=== PATIENT | male | born 1965 | race Caucasian/White ===

== ENCOUNTER 2016-07-31 10:35 | Emergency (ER) | payer OTHER ==
[2016-07-31 10:43] VITALS: TEMP 98.4; BMI 26.1
[2016-07-31 10:58] LABS: AUTOMATED BASOPHIL 0.6 % (0-2); AUTOMATED EOSINOPHIL 1.3 % (0-5); AUTOMATED LYMPH 24.7 % (17-44); AUTOMATED MONOCYTE 8.9 % (3-10); AUTOMATED NEUTROPHIL 64.5 % (45-76); MPV 7.7 fL (7.4-10.4)
[2016-07-31 11:12] LABS: BLOOD UREA NITROGEN 14 MG/DL (9-20); CALCIUM 10.3 MG/DL (8.4-10.2); CALCULATED OSMOLALITY 265 MOs/Kg (270-290); CHLORIDE 100 mEq/L (98-107); GLUCOSE 92 MG/DL (70-99); SODIUM LEVEL 137 mEq/L (137-146); TOTAL PROTEIN 8.2 G/DL (6.3-8.2)
[2016-07-31 11:13] LABS: PARTIAL THROMB. TIME 23.7 SEC (22-35)
--- NOTE | 2016-07-31 12:58 | EDPRACDOC ---
- General Information Chief Complaint: Generalized Weakness Stated Complaint: CHEST PAIN Time Seen by Provider: 07/31/16 12:47 Mode Of Arrival: Car Home Medications: Home Medications Atorvastatin Calcium [Lipitor] 10 mg PO DAILY 07/31/16 Lisinopril/Hydrochlorothiazide [Lisinopril-Hctz 20-25 mg Tab] 1 each PO DAILY Ranitidine HCl [Wal-Abad 75] 75 mg PO DAILY PRN 07/31/16 Allergies/Adverse Reactions: Allergies Allergy/AdvReac Type Severity Reaction Status Date / Time No Known Allergies Allergy Verified 07/31/16 10:42 - History of Present Illness Onset: YEST Exact Onset of Symptoms: Unknown HPI: PT PRESENTS TODAY WITH "FLUSHNESS" THAT OCCURRED YESTERDAY AT WORK. PT STATES THAT HE WAS WORKING AND WAS VERY STRESSED AND HE SUDDENLY FELT "A WARM FLUSHNESS FROM MY GROIN TO MY HEAD". PT STATES HIS SYMPTOMS QUICKLY RESOLVED AND HE WENT HOME. PT STATES THAT HIS GOOGLED THE SYMPTOMS AND TOLD HIM IT COULD BE A SIGN OF A HEART ATTACK AND HE SHOULD COME TO THE ED. DENIES SYMPTOMS NOW. PMH OF HTN/HLD, NEGATIVE STRESS LAST YEAR, FATHER OF AL AT 54. NO APPARENT DISTRESS. Symptoms Started: Reports: Suddenly, With light exertion Symptoms Description: Improved Symptom Severity: Reports: Does not affect activitiy Associated signs and symptoms:: Reports: None ED Past Medical History - History Reviewed Yes Nurses notes reviewed and agree except as marked - Patient Medical History Cardiac History: Reports: Hypertension, Hypercholesterolemia GI/ History: Reports: Gastroesophageal Reflux Systemic History: Denies: Cancer EDM Review of Systems - Review of Systems ROS Negative Except as Marked: Yes All systems reviewed and were negative except as marked Constitutional: No Symptoms Reported Respiratory: No Symptoms Reported Cardiovascular: No Symptoms Reported Gastrointestinal: No Symptoms Reported Genitourinary: No Symptoms Reported Neurological: No Symptoms Reported Musculoskeletal: No Symptoms Reported Integumentary: No Symptoms Reported - Physical Exam Constitutional: Alert (Awake), No apparent distress Oriented to: Time, Person, Place Last recorded Vital Signs: Last Vital Signs Temp 98.4 F 07/31/16 10:38 Pulse 74 07/31/16 12:37 Resp 18 07/31/16 12:37 BP 134/73 07/31/16 12:37 Pulse Ox 97 07/31/16 12:37 Oxygen Pulse Oxygen Saturation 97 O2 Device Oxygen Flow Rate Fraction of Inspired Oxygen ( FIO2) - HEENT Head: Normal Eye Exam: Normal Neck: Normal, Denies Pain, Midline - Respiratory/Cardiovascular Respiratory: Normal - CTA Cardiovascular: Normal - GI Palpation: Normal Tenderness: Non tender - Musculoskeletal Back: Normal Extremities: Normal - Integumentary Skin: Normal Lymphatics: Normal - Neurologic Cerebellar: Normal Mood Description: Normal Thought: Coherent Perception: Normal - Results 07/31/16 10:43 07/31/16 10:43 WBC 10.4 xk/uL (3.8-10.8) 07/31/16 10:43 RBC 5.00 xM/uL (4.70-6.10) 07/31/16 10:43 Hgb 16.1 g/dL (14.0-18.0) 07/31/16 10:43 Hct 46.8 % (42-52) 07/31/16 10:43 MCV 94 fL (80-94) 07/31/16 10:43 MCH 32.2 pg (27-32) H 07/31/16 10:43 MCHC 34.4 g/dl (33-36) 07/31/16 10:43 RDW 12.8 % (11.5-14.5) 07/31/16 10:43 Plt Count 257 xk/uL (130-400) 07/31/16 10:43 MPV 7.7 fL (7.4-10.4) 07/31/16 10:43 Neut % (Auto) 64.5 % (45-76) 07/31/16 10:43 Lymph % (Auto) 24.7 % (17-44) 07/31/16 10:43 [place] % (Auto) 8.9 % (3-10) 07/31/16 10:43 Eos % (Auto) 1.3 % (0-5) 07/31/16 10:43 Baso % (Auto) 0.6 % (0-2) 07/31/16 10:43 Absolute Neuts (auto) 6.66 xk/uL (1.7-8.2) 07/31/16 10:43 Absolute Lymphs (auto) 2.50 xk/uL (0.65-4.75) 07/31/16 10:43 PT 10.2 SEC (9.2-11.2) 07/31/16 10:43 INR 1.0 07/31/16 10:43 APTT 23.7 SEC (22-35) 07/31/16 10:43 Sodium 137 mEq/L (137-146) 07/31/16 10:43 Potassium 4.1 mEq/L (3.5-5.1) 07/31/16 10:43 Chloride 100 mEq/L (98-107) 07/31/16 10:43 Carbon Dioxide 26 mMOL/L (22-33) 07/31/16 10:43 Anion Gap 15 mEq/L (8-16) 07/31/16 10:43 BUN 14 MG/DL (9-20) 07/31/16 10:43 Creatinine 0.90 MG/DL (0.66-1.25) 07/31/16 10:43 Estimated GFR (MDRD) > 60 mL/min (>=60) 07/31/16 10:43 Glucose 92 MG/DL (70-99) 07/31/16 10:43 Calculated Osmolality 265 MOs/Kg (270-290) L 07/31/16 10:43 Calcium 10.3 MG/DL (8.4-10.2) H 07/31/16 10:43 Total Bilirubin 0.7 MG/DL (0.2-1.3) 07/31/16 10:43 AST 27 IU/L (17-59) 07/31/16 10:43 ALT 46 IU/L (21-72) 07/31/16 10:43 Alkaline Phosphatase 66 IU/L (38-126) 07/31/16 10:43 Troponin I < 0.01 ng/mL (<.04) 07/31/16 10:43 Oza-Z-Rbiatadyaan Pept 17 pg/mL (0-900) 07/31/16 10:43 Total Protein 8.2 G/DL (6.3-8.2) 07/31/16 10:43 Albumin 4.4 G/DL (3.5-5.0) 07/31/16 10:43 Lab Results 07/31/16 07/31/16 07/31/16 10:43 10:43 10:43 WBC 10.4 RBC 5.00 Hgb 16.1 Hct 46.8 MCV 94 MCH 32.2 H MCHC 34.4 RDW 12.8 Plt Count 257 MPV 7.7 Neut % (Auto) 64.5 Lymph % (Auto) 24.7 [place] % (Auto) 8.9 Eos % (Auto) 1.3 Baso % (Auto) 0.6 Absolute Neuts (auto) 6.66 Absolute Lymphs (auto) 2.50 PT 10.2 INR 1.0 APTT 23.7 Sodium 137 Potassium 4.1 Chloride 100 Carbon Dioxide 26 Anion Gap 15 BUN 14 Creatinine 0.90 Estimated GFR (MDRD) > 60 Glucose 92 Calculated Osmolality 265 L Calcium 10.3 H Total Bilirubin 0.7 AST 27 ALT 46 Alkaline Phosphatase 66 Troponin I < 0.01 Odt-V-Sapfhsilpwo Pept 17 Total Protein 8.2 Albumin 4.4 - EKG EKG #1 EKG Time: 10:42 -: Yes EKG interpreted by me Rate: bpm: 74 [place]: Normal Rhythm: NSR Block: None Hypertrophy: None ST: Normal Decision Time to Discharge: 12:57 - Departure Disposition: Home Condition: Good Final Diagnosis: Anxiety Instructions: Anxiety (ED) Education/Counseling Given To: Patient Education/Counseling Given Regarding: Diagnosis, Treatment, Follow Up Referrals: Nanette Daigle PA [Primary Care Provider] - One Week
[2016-07-31 13:07] VITALS: BP 136/81; PULSE 82
== END 2016-07-31 13:04 | disposition home or self-care (01) ==
LOC: ED 10:35 → EDMC 13:04
DX: F41.9 Anxiety disorder, unspecified (principal)
CPT/HCPCS: 36415; 80053; 83880; 84484; 85025; 85610; 85730; 93005; 99284